=== PATIENT | female | born 1960 | race Caucasian/White ===

== ENCOUNTER 2024-08-06 08:14 | Outpatient (AMB) | payer OTHER, SELFPAY ==
--- NOTE | 2024-08-06 08:16 | MHC.OFFWIV ---
Intake Vital Signs 08/06/24 08:19 Height 5 ft 1.5 in Weight 124 lb BMI 23.0 BP 138/80 Blood Pressure Location Lt brachial Position Sitting Pulse 97 Pulse Source Pulse Oximeter Pulse Oximetry (%) 98 Oxygen Delivery Method Room Air Intake Visit Reasons: [employer] Sore throat Intake Note: Pt is here today for a walk in visit. Pt c/o sore throat since Tuesday. Allergies No Known Allergies Allergy (Verified 08/06/24 08:19) Do you need a note to return to daycare/school/sports/work: No HPI HPI Comments History of Present Illness Details History - The patient is a 63-year-old female presenting with a sore throat. - Symptom onset was 5 days ago, progressing from sore throat with temporary aphonia, moderate swallowing pain, and improvement with time. - Associated mild fever, peaking at 99.5?F, noted as non-persistent or typical. - No significant nasal congestion, with sparse nasal dripping and absence of substantial cough reported. - Neck soreness with a perception of fullness experienced - Denies ear pain or sinus pain, wheezing or sob Physical Exam General: Cooperative, healthy appearing, comfortable and no acute distress Orientation/consciousness: Patient oriented x3 Limitations: No limitations Head: Normal to inspection Ears: Hearing grossly normal bilaterally, external ears normal and TM's normal bilaterally, but some fluid noted in one ear with wax obstructing view Nose: Normal external nose present, Normal nares present and No nasal discharge present Face and sinus: Normal facial exam and Yes sinuses nontender Mouth: Normal oral and palatal mucosa present and moist mucous membranes Throat: No tonsils present, Yes uvula midline. Posterior oropharynx erythema, no exudates Eyes: Appearance normal, both eyes and all related structures Neck: Normal visual inspection, tenderness noted but no swelling Respiratory: Normal respiratory effort, able to speak in complete sentences, no respiratory distress, not tachypneic, no tripod positioning and no use of accessory muscles Skin: No rashes or lesions noted Neuro: Patient oriented x3 Extremities: Normal to inspection and Yes no clubbing, cyanosis or edema Review of Systems Const All systems reviewed & are unremarkable except as noted in HPI and below Physical Exam Vital Signs: Last Vital Signs Pulse 103 H 08/06/24 08:19 BP 138/80 08/06/24 08:19 Pulse Ox 98 08/06/24 08:19 Oxygen Delivery Method Room Air 08/06/24 08:19 BMI result Body Mass Index 23.0 Results AMB Rapid Strep AMB Rapid Strep Negative Last Edit by JEANNE Wyman on 08/06/24 08:47 Results Reviewed Results Reviewed: Laboratory Last Values Strep Scn Rapid Clinic Negative 08/06/24 08:46 Assessment & Plan Assessment & Plan (1) URI, acute: Code(s): J06.9 - Acute upper respiratory infection, unspecified Plan: A rapid diagnostic swabbing test for Streptococcus at the visit was negative. Based on the assessment, the patient's symptoms indicate a viral upper respiratory infection, corroborated by sore throat, neck discomfort, and negative strep result. The decision is not to administer antibiotics at this junction. Additional tests for influenza, COVID-19, and RSV have been carried out due to overlapping symptomatology. The patient is advised to monitor symptoms and reach out if conditions worsen or significantly deviate. Expectation is a gradual remission typical of viral illnesses, supported by symptom improvement already noted. Patient was informed and verbally consented to the use of an ambient scribe for clinic note documentation during this visit Orders: Orders SARS-CoV2/FLU/RSV Today R09.89 - Other specified symptoms and signs involving the circulatory and respiratory systems AMB Rapid Strep Screen Today Z13.9 - Encounter for screening, unspecified Coding Level of Care Code New Pt Level 3 (59919) Diagnoses URI, acute J06.9
[2024-08-06 08:19] VITALS: BP 138/80; PULSE 97; O2SAT 98; BMI 23.0
== END 2024-08-06 08:58 | disposition home or self-care (01) ==
PROVIDERS: Visit Provider Physician Assistant
DX: J06.9 Acute upper respiratory infection, unspecified (principal); Z13.9 Encounter for screening, unspecified

== ENCOUNTER 2024-08-06 08:14 | Outpatient (REF) | payer OTHER, SELFPAY | END 2024-08-06 08:15 | disposition home or self-care (01) | LOC: HO.LAB 08:14 | DX: Z13.9 Encounter for screening, unspecified (principal) | CPT/HCPCS: 0241U; 87880 ==